=== PATIENT | female | born 1985 | race Caucasian/White ===

== ENCOUNTER 2024-01-21 16:22 | Emergency (ER) | payer OTHER, SELFPAY ==
[2024-01-21 16:32] VITALS: BP 110/84
[2024-01-21 16:55] VITALS: BMI 28.7
[2024-01-21 17:00] VITALS: BP 114/79
[2024-01-21 17:24] LABS: HCG, Serum Qualitative Screen Negative
[2024-01-21 17:33] LABS: ALT (SGPT) 35 U/L (0-35); AST (SGOT) 75 U/L (14-36); Albumin 4.1 g/dl (3.5-5.0); Alkaline Phosphatase 130 U/L (38-126); Blood Urea Nitrogen 16 mg/dl (7-17); Calcium 9.2 mg/dl (8.4-10.2); Carbon Dioxide 22 mmol/L (22-30); Chloride 108 mmol/L (98-107); Estimated Creatinine Clearance > 125 ml/min; Glucose 119 mg/dl (70-99); Potassium 3.9 mmol/L (3.5-5.1); Sodium 139 mmol/L (135-145); Total Bilirubin 0.4 mg/dl (0.2-1.3); Total Protein 7.2 g/dl (6.3-8.2); eGFR > 60.00
[2024-01-21 17:35] LABS: Lipase 232 U/L (23-300)
[2024-01-21 17:39] LABS: % Basophils 0.4 % (0-2); % Eosinophils 7.1 % (0-6); % Immature Granulocytes 0.3 % (0-0.5); % Lymphocytes 9.7 % (20.5-51.1); % Monocytes 5.4 % (1.7-9.3); % Neutrophils 77.1 % (42.2-75.2); Absolute Basophils 0.1 10^3/uL (0-0.2); Absolute Eosinophils 0.8 10^3/uL (0-0.7); Absolute Lymphocytes 1.1 10^3/uL (1.2-3.4); Absolute Monocytes 0.6 10^3/uL (0.1-0.6); Absolute Neutrophils 8.8 10^3/uL (1.4-6.5); Hematocrit 39.2 % (37.0-47.0); Mean Corp Hgb Conc. 30.6 g/dL (33.0-37.0); Mean Corpuscular Hgb 24.1 pg (27.0-31.0); Mean Corpuscular Volume 78.7 fL (81.0-99.0); Nucleated Red Blood Cells % 0 %; Red Blood Cell Count 4.98 10^6/uL (4.20-5.40); Red Cell Dist. Width 18.6 % (11.5-14.5); White Blood Cell Count 11.3 10^3/uL (4.8-10.8)
[2024-01-21 17:43] LABS: Troponin I < 0.012 ng/ml
[2024-01-21 18:00] VITALS: BP 105/71
[2024-01-21] MEDS: SOLU-CORTEF 200 MG IV (18:27)
[2024-01-21] MEDS: BENADRYL 50 MG IV (18:28)
[2024-01-21 19:00] VITALS: BP 118/76
--- NOTE | 2024-01-21 20:26 | ED.GENMED ---
History of Present Illness
General
Chief Complaint: Chest Pain
Source: patient, spouse and family
Exam Limitations: none
Time Seen by Provider: 01/21/24 16:36
History of Present Illness
History of Present Illness:
38-year-old female sudden onset of chest pain at rest this afternoon. Radiates to the upper back. Some shortness of breath with it. Became near syncopal. No history of same. Lasted about 30 minutes and now asymptomatic. Recent .
Almost 4 weeks .
Past History
Past History
ED Past Medical History: Other (Ulcerative colitis)
ED Past Surgical History: and Other (Bowel resection)
Social History
Tobacco: Non-smoker
Alcohol: Occasional
Living: with family
Family History
Family History: Negative Diabetes, Hypertension or CAD
Phy Exam
Physical Exam
Physical Exam:
GENERAL: Alert and oriented in no apparent distress
EYE: Orbits normal.
NECK: Supple
CARDIAC: Regular rate and rhythm without any obvious murmurs.
LUNGS: Clear breath sounds,normal
ABDOMEN: Soft, without focal tenderness or distention. Healing scar. Old lower abdominal scars
NEUROLOGICAL: Alert and oriented , grossly non-focal
SKIN: Warm and dry, no rash or lesion, no discoloration, skin intact.
MUSCULOSKELETAL: No edema,no deformity.Good color
PSYCH: Normal and appropriate interaction.
Scores
Heart Score for Chest Pain Patients
STEMI patient?: No
History: Slightly or Non-Suspicious
ECG: Normal
Age: </= 45 years
Risk Factors: No Risk Factors
Troponin: </= Normal Limit
Heart Score for Chest Pain Patients: 0
Heart Score Risk: 2.5% MACE over next 6 weeks
Course
Orders/Labs/Results
Orders:
Orders
01/21/24 16:34
EKG [Electrocardiogram (*1)] Urgent
Reason for Study: Chest Pain
EKG- Treatment ONCE
01/21/24 16:54
CT Chest Pe Study Urgent
Comment:
Reason For Exam: Sudden upper chest back pain short of breath
01/21/24 16:56
Test Result ONCE
01/21/24 16:59
Diphenhydramine [Benadryl] 50 mg IV NOW STA
Hydrocortisone Sod Succinate [Solu-Cortef] 200 mg IV NOW STA
01/21/24 17:00
CMP [Comprehensive Metabolic Panel] Urgent
Complete Blood Count/With Diff Urgent
HCG, Serum Qualitative Screen Urgent
Lipase Urgent
Troponin I Urgent
01/21/24 19:28
EKG- Treatment ONCE
01/21/24 20:00
Electrocardiogram (*1) Urgent
Reason for Study: Chest Pain
01/21/24 20:03
Troponin I Urgent
Abnormal Lab Results
01/21/24
17:00
WBC 11.3 H 10^3/uL
(4.8-10.8)
MCV 78.7 L fL
(81.0-99.0)
MCH 24.1 L pg
(27.0-31.0)
MCHC 30.6 L g/dL
(33.0-37.0)
RDW 18.6 H %
(11.5-14.5)
Absolute Neuts (auto) 8.8 H 10^3/uL
(1.4-6.5)
Absolute Lymphs (auto) 1.1 L 10^3/uL
(1.2-3.4)
Absolute Eos (auto) 0.8 H 10^3/uL
(0-0.7)
Neutrophils % 77.1 H %
(42.2-75.2)
Lymphocytes % 9.7 L %
(20.5-51.1)
Eosinophils % 7.1 H %
(0-6)
Chloride 108 H mmol/L
(98-107)
Glucose 119 H mg/dl
(70-99)
AST 75 H U/L
(14-36)
Alkaline Phosphatase 130 H U/L
(38-126)
01/21/24 17:00
01/21/24 17:00
Vital Signs
Initial and Last Documented VS:
Initial Vital Signs
BP
110/84
01/21/24 16:32
Last Documented Vital Signs
Pulse Resp BP Pulse Ox
78 17 118/76 95
01/21/24 20:45 01/21/24 20:45 01/21/24 19:00 01/21/24 20:30
MDM/Problems Addressed
Differential Diagnosis Includes:
Sudden onset of chest pain upper back pain shortness of breath and a patient. Although symptoms have resolved still would be concerned and needs evaluation for PE dissection. Gallbladder less likely. She has no right upper quadrant
tenderness. Patient did have a hive from dye in the past. Risk-benefit of CT scan with IV dye was discussed. Patient will be pretreated.
*Critical Care Note
Total Time (30-74mins, 75-104mins- exclusive of procedures): Not Applicable
Update Note
Update Note:
2025... Patient has remained totally asymptomatic. Just sleepy from the Benadryl. Discussed ultrasound. She is comfortable skipping the ultrasound given that she is asymptomatic, low suspicion for biliary colic and would not manager change
this evening. Patient would consider outpatient ultrasounds if symptoms recur. If troponin is negative patient will be discharged to follow-up.
ED Attending Note
-
Portions of this chart may have been created with voice recognition software.� Occasional wrong word or��sound alike� substitutions may have occurred due to the inherent limitations of voice recognition software.
Discharge Plan
Departure
Patient Disposition: Home (Routine Discharge)
Date of Disposition: 01/21/24
Time of Disposition: 20:38
Patient with high blood pressure during this ER visit?: No
Discharge Problem:
Transient chest/upper back pain, Recent
Instructions: Upper Back Pain ED, Chest pain
Prescriptions:
No Action
acetaminophen 325 MG tablet
650 mg PO Q4H PRN (Reason: PAIN)
budesonide [Uceris] 9 MG tablet,delayed and ext.release
9 mg PO QPM
cephalexin 500 MG capsule
500 mg PO BID Qty: 10 1RF
hydrocodone-acetaminophen [Vicodin] 1 EACH tablet
1 ea PO Q6HPRN PRN (Reason: pain) Qty: 7 0RF
azithromycin [Zithromax] 250 MG tablet
250 mg PO UD Qty: 1 0RF
Referrals:
Paradise Saunders MD [Family Provider] - Follow up in 2-3 days
Activity Restrictions/Additional Instructions:
Follow-up with your primary physician
Return with recurrent episodes of chest pain upper back pain shortness of breath fever or any other concerning symptoms
Interventions
Interventions:
*Risk Screen - Suicide Last Done: 01/21/24 16:26
*General Assessment Last Done: 01/21/24 16:45
*Neglect/Abuse Screening Last Done: 01/21/24 16:26
ED- Fall Risk Assessment Last Done: 01/21/24 16:45
*ED COVID-19 Vaccine History Last Done: 01/21/24 16:26
*Nursing Disposition Last Done: 01/21/24 20:54
ED- Cardiac Assessment Last Done: 01/21/24 16:45
Discharge Date and Time
Discharge Date/Time: 01/21/24 20:59
Print Language: MALAY
[2024-01-21 20:36] LABS: Troponin I < 0.012 ng/ml
== END 2024-01-21 20:59 | disposition home or self-care (01) ==
LOC: EMR 16:22
PROVIDERS: EMERGENCY PHYSICIAN Emergency Medicine; FAMILY PHYSICIAN Family Medicine
DX: O90.89 Other complications of the puerperium, not elsewhere classified (principal); R07.9 Chest pain, unspecified; M54.6 Pain in thoracic spine
CPT/HCPCS: 99284; 96374; 96375; 71275; 80053; 83690; 84484; 84703; 85025; 93005; Q9967